=== PATIENT | female | born 1970 | race Caucasian/White ===

== ENCOUNTER 2017-03-31 11:38 | Observation (INO) | payer OTHER ==
[~2017-03-31] VITALS: Ht 170.2 cm; Wt 68.0 kg
--- NOTE | 2017-03-31 11:42 | NUR ---
PT HAD EVAL TODAY AT WALK IN TO R/O APPY DUE TO RLQ PAIN SINCE LAST NIGHT AND HAD BLOODWORK. AFTER THAT SHE FELT WEAK, DIZZY, HANDS TINGLING. REPORTS LOW GRADE TEMP 99.9 ARIVES AFEBRILE BUT DIAPHORETIC IN TRIAGE. NO VOMITING. TO EKG ALCOVE NOTE WRITTEN BY LAURE LIU.
--- NOTE | 2017-03-31 12:02 | NUR ---
PT TO ROOM 12 VIA W/C, CHANGED INTO GOWN. AWAITING PROVIDER EVAL. Informed waiting has been performed.
[2017-03-31 12:12] LABS: ABSOLUTE BASOPHIL COUNT 0 /CUMM (0.0-0.2); ABSOLUTE EOSINOPHIL COUNT 0 /CUMM (0.0-0.7); ABSOLUTE GRANULOCYTE CT 14.1 /CUMM (1.4-6.5); ABSOLUTE LYMPH COUNT 1.4 /CUMM (1.2-3.4); BASOPHIL % 0 % (0.0-2.0); EOSINOPHIL % 0.3 % (0-5); HEMATOCRIT 40.5 % (37-47); MEAN CORPUSCULAR HGB CONC 33.4 G/DL (33.0-37.0); MEAN CORPUSCULAR VOLUME 86.6 FL (81.0-99.0); MEAN PLATELET VOLUME 9.7 FL (7.4-10.4); PLATELET COUNT 191 /CUMM (130-400); RBC DISTRIBUTION WIDTH 13.1 % (11.5-14.5); RED BLOOD CELL CT 4.67 /CUMM (4.20-5.40); WHITE BLOOD CELL COUNT 16.6 /CUMM (4.8-10.8)
--- NOTE | 2017-03-31 12:14 | NUR ---
DR DIAZ IN FOR EVAL.
--- NOTE | 2017-03-31 12:29 | ED GI/GU/ABDOMINAL COMPLAINT ---
History of Present Illness General Chief Complaint: Nausea, Vomiting, Diarrhea Stated Complaint: NEAR SYNCOPE NAUSEA GAVE BLOOD TODAY Source: patient Exam Limitations: no limitations Vital Signs & Intake/Output Vital Signs & Intake/Output Vital Signs Date Time Temp Pulse Resp B/P B/P Pulse O2 O2 Flow FiO2 Mean Ox Delivery Rate 04/01 626 98.1 63 20 136/80 97 Room Air 03/31 2310 Room Air 03/31 2157 98.0 81 18 120/70 98 03/31 1842 97.5 76 18 120/70 97 Room Air ED Intake and Output 04/01 0000 03/31 1200 Intake Total 980 Output Total Balance 980 Intake, IV 500 Intake, Oral 480 Patient 150 lb 150 lb Weight Weight Estimated Measurement Method Allergies Coded Allergies: No Known Allergies (03/31/17) Reconcile Medications Acetaminophen (Tylenol Extra Strength) 500 MG TABLET 2 TAB PO Q6-8 PAIN CONTROL Triage Note: PT HAD EVAL TODAY AT WALK IN TO R/O APPY DUE TO RLQ PAIN SINCE LAST NIGHT AND HAD BLOODWORK. AFTER THAT SHE FELT WEAK, DIZZY, HANDS TINGLING. REPORTS LOW GRADE TEMP 99.9 ARIVES AFEBRILE BUT DIAPHORETIC IN TRIAGE. NO VOMITING. TO EKG LANCING Triage Nurses Notes Reviewed? yes ? N Is pt currently ? No HPI: Patient presents for evaluation of a periumbilical abdominal pain that began gradually last night. Patient states the pain then moved down into the right lower quadrant. She noticed that it was worse with movement. It is a sharp pain that fluctuates in intensity but has gotten worse. She went to a walk-in center and had blood drawn but was getting into her car to have an ultrasound when she had an onset of sweating nausea and tingling of the hands. She states she had a low-grade fever when at the walk-in center. She denies diarrhea but has had a loose bowel movement. She denies dysuria recent travel known ill contacts chest pain dyspnea or rashes. Currently she complains only of the periumbilical and right lower quadrant abdominal pain. The remaining symptoms have resolved. Past History Travel History Traveled to [place] past 21 day No Medical History Any Pertinent Medical History? see below for history Cardiovascular: QUESTIONABLE BORDERLINE HYPERTENSION Surgical History Surgical History: , tubal ligation Psychosocial History What is your primary language Turkish Tobacco Use: Refused to answer Family History Hx Contributory? No Review of Systems Review of Systems Constitutional: Reports: no symptoms. EENTM: Reports: no symptoms. Respiratory: Reports: no symptoms. Cardiovascular: Reports: no symptoms. GI: Reports: see HPI. Genitourinary: Reports: no symptoms. Musculoskeletal: Reports: no symptoms. Skin: Reports: no symptoms. Neurological/Psychological: Reports: no symptoms. Hematologic/Endocrine: Reports: no symptoms. Immunologic/Allergic: Reports: no symptoms. All Other Systems: Reviewed and Negative Physical Exam Physical Exam Gastrointestinal: SEE BELOW Comments: Gen.: Well-nourished, well-developed, no acute respiratory distress. Head: Normocephalic, atraumatic. Eyes: Normal inspection bilaterally Ears: Normal inspection bilaterally Nose: Normal inspection Throat/mouth : Moist mucosa Neck: Supple, full range of motion, no goiter Heart: Regular rate and rhythm, no murmurs rubs or gallops Lungs: Clear to auscultation bilaterally with normal air entry Chest: Nontender Back: Normal range of motion Abdomen: Soft, tenderness of the right lower quadrant and McBurney's point, Rovsing sign present, nondistended, normal bowel sounds, tenderness to percussion over the right lower quadrant Extremities: Normal range of motion grossly, equal radial pulses, no cyanosis clubbing or edema Neurologic: Cranial nerves grossly intact, speech is clear Skin: warm and dry Psychiatric: Calm, cooperative, no apparent delusions or hallucinations Core Measures ACS in differential dx? No Severe Sepsis Present: No Septic Shock Present: No Progress Differential Diagnosis: APPENDICITIS, OVARIAN CYST/TORSION, RENAL COLIC Plan of Care: Orders Procedure Date/time Status Regular Diet 04/01 B Active Wound Care/Dressing 04/01 0024 Active Discharge Patient 04/01 UNK Active Regular Diet 03/31 D Complete RT: Evaluation 03/31 2309 Active TRC EVALUATION (GEN) 03/31 1853 Active Pathway - chart 03/[address] in observation 03/31 1853 Active Patient Data 03/31 1853 Active VTE Mechanical Prophylaxis 03/31 1853 Active Vital Signs 03/31 1853 Complete Intake & Output 03/31 1853 Active Activity/Ambulation 03/31 1853 Active Vital Signs 03/31 184 Active Teach/Educate 03/31 1842 Active Pain Treatment and Response 03/31 1842 Active Nutritional Intake, Monitor 03/31 1842 Active Isolation 03/31 1842 Active Intake & Output 03/31 1842 Active Patient Care Conference 03/31 1842 Active Activity/Ambulation 03/31 1842 Complete PHARMACY COMMUNICATION FORM 03/31 UNK Active Initial ED EKG: NSR, no ST T wave changes Comments: Patient declined pain medication. 03/31/2017 1:26:52 PM I just received a call from the radiologist, patient has acute appendicitis. Surgery paged. Departure Departure Disposition: STILL A PATIENT Condition: Stable Clinical Impression Primary Impression: Acute appendicitis Qualifiers: Acute appendicitis type: with localized peritonitis Qualified Code: K35.3 - Acute appendicitis with localized peritonitis Referrals: BAKARI MCKEE,EHSAN William (PCP/Family) Departure Forms: Customer Survey General Discharge Information Prescriptions: Current Visit Scripts Acetaminophen (Tylenol Extra Strength) 2 TAB PO Q6-8 #30 TAB Admission Note Spoke With: MICHELLE ANDRADE DO Documentation of Exam: Documentation of any treatments & extenuating circumstances including Concerns Regarding Discharge (functional status, medication knowledge or non-compliance, living conditions, etc.) that warrant an admission rather than observation: OR/GI Note ED Treatment Decision: JANNET VILLALOBOS requires urgent operative management or an emergent procedure that cannot be performed in the Emergency Room setting. Transport To: [facility] Critical Care Note Critical Care Note Critical Care Time: 30-74 min
--- NOTE | 2017-03-31 12:38 | NUR ---
PT TO U/S VIA STRETCHER.
--- NOTE | 2017-03-31 13:09 | NUR ---
PT RETURNED FROM US
--- NOTE | 2017-03-31 13:09 | NUR ---
PT TO CAT SCAN
--- NOTE | 2017-03-31 13:20 | NUR ---
BACK FROM CAT SCAN.
--- NOTE | 2017-03-31 13:25 | ULTRASOUND REPORT ---
EXAMINATION: US TRANSVAGINAL CLINICAL INFORMATION: Right lower abdominal pain. Evaluate for ovarian cyst or torsion. COMPARISON: CT images of the abdomen and pelvis from 03/31/2017 TECHNIQUE: Sonographic imaging of the pelvis was performed using transabdominal and transvaginal transducers. In addition to grayscale imaging, duplex Doppler imaging of both ovaries was performed. FINDINGS: The cervical canal measures approximately 2.8 cm in length and there are nabothian cysts of the cervix. The uterus measures approximately 6 cm long, 3.6 cm AP and 5.8 cm transverse. The myometrial echotexture is normal. The endometrium is normal and measures 0.4 cm AP. The right ovary is 3.6 x 1.2 x 2.1 cm. The left ovary is 2.7 x 2 x 2 cm and its dominant follicle is 1.7 cm. There are no adnexal masses. Color Doppler images with spectral waveforms show presence of normal arterial and venous flow within both ovaries. No free fluid in the pelvic cul-de-sac. IMPRESSION: The uterus and ovaries are normal. No evidence of ovarian mass or torsion.
--- NOTE | 2017-03-31 13:36 | CT SCAN REPORT ---
EXAMINATION: CT ABDOMEN AND PELVIS WITH CONTRAST CLINICAL INFORMATION: Right lower quadrant pain. COMPARISON: None TECHNIQUE: Multidetector volumetric imaging was performed of the abdomen and pelvis before and after the IV administration of 95 mL of Optiray 320 intravenous contrast. Sagittal and coronal reformatted images were obtained on the technologist's workstation. DLP: 339 mGy-cm FINDINGS: LUNG BASES: Unremarkable. LIVER, GALLBLADDER, AND BILIARY TREE: Liver has normal size and contour. 0.4 cm hypodense focus near the hepatic dome is likely a cyst but is too small to characterize. No suspicious hepatic lesion or intrahepatic bile duct dilatation. Gallbladder is unremarkable. PANCREAS: Unremarkable. SPLEEN: Unremarkable. ADRENAL GLANDS: Unremarkable. KIDNEYS, URETERS AND BLADDER: Kidneys are normal in size and enhance symmetrically. There is a 3 mm calculus in the lower pole of the left kidney (image 256, series 3). Otherwise, kidneys, ureters and bladder are unremarkable. GASTROINTESTINAL TRACT: Stomach is unremarkable. Loops of bowel are normal in caliber. The appendix is dilated up to 1 cm, its wall thickened and hyperenhancing, and two appendicoliths are noted. There is periappendiceal fat stranding and free fluid without rim-enhancing abscess. There are diverticula of the sigmoid colon without diverticulitis. ABDOMINAL WALL: There is diastases of rectus abdominis muscles ( by 5.5 cm at the level of the umbilicus). Small fat-containing umbilical hernia is noted with hernia sac measuring 2.3 cm transverse and 1.8 cm craniocaudal. LYMPH NODES: No pathologic sized lymph nodes within the abdomen or pelvis. VASCULAR: Abdominal aorta is normal in caliber. The left renal vein has a retroaortic course. PELVIC VISCERA: The uterus and ovaries are normal. Small amount of free fluid is seen within the pelvis. OSSEOUS STRUCTURES: Unremarkable. IMPRESSION: 1. Acute appendicitis. 2. Diastases of rectus abdominis muscles and small fat-containing umbilical hernia. 3. Small, 3 mm nonobstructing calculus within the lower pole of the left kidney. The test result of acute appendicitis was discussed with Dr. Villela of the emergency room at 1:26 PM on 03/31/2017 and it was ascertained that the content and the importance of the findings was understood at the time of the direct communication.
--- NOTE | 2017-03-31 14:18 | NUR ---
DR DIAZ IN TO REVIEW POC. AWAITING SURGERY. Informed waiting has been performed.
--- NOTE | 2017-03-31 14:30 | History & Physical Pre-Op ---
GREGORY WELLINGTON 03/31/17 1428: General Information and HPI Exam Limitations: dementia History of Present Illness: 46yoF no pmhx c/o abd pain and bloating which started approx 24hr ago. Pain worsened overnight, and went to urgent care center this am. Urgent care sent her to have imaging/labs, but she didn't have them completed- instead felt worse and came directly to ED. 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 Surgical History Pertinent Surgical History: , tubal ligation Past Family/Social History Psychosocial History Smoking Status: Never Smoked ETOH Use: denies use Illicit Drug Use: denies illicit drug use Review of Systems Review of Systems: SEE HPI Exam & Diagnostic Data Last 24 Hrs of Vital Signs/I&O Vital Signs Date Time Temp Pulse Resp B/P B/P Pulse O2 O2 Flow FiO2 Mean Ox Delivery Rate 03/31 1417 99.3 90 20 140/70 97 Room Air 03/31 1146 97.8 92 16 125/79 100 Room Air Intake & Output 03/31 1600 03/31 0800 03/31 0000 Intake Total Output Total Balance Patient 150 lb Weight Weight Estimated Measurement Method Physical Exam: GEN:NAD CARD: s1s2 RRR PULM: CTAB ABD: softly distended, ttp RLQ EXT: calves soft nt bl Last 24 Hrs of Labs/Tevin: Laboratory Tests 03/31/17 1310: Urine Color YEL, Urine Clarity HAZY H, Urine pH 7.0, Ur Specific [place] 1.020, Urine Protein 30 H, Urine Ketones NEG, Urine Nitrite NEG, Urine Bilirubin NEG, Urine Urobilinogen 0.2, Ur Leukocyte Esterase NEG, Ur Microscopic SEDIMENT EXAMINED, Urine RBC 3-5, Urine WBC 3-5 H, Ur Epithelial Cells MOD H, Urine Mucus MANY H, Urine Hemoglobin TRACE-INTACT, Urine Glucose NEG 03/31/17 1154: Anion Gap 10, Estimated GFR > 60, BUN/Creatinine Ratio 13.3, Glucose 114 H, Lactic Acid 1.6, Calcium 9.6, Total Bilirubin 0.8, AST 22, ALT 47, Alkaline Phosphatase 87, Total Protein 7.0, Albumin 4.4, Globulin 2.6, Albumin/Globulin Ratio 1.7, CBC w Diff MAN DIFF ORDERED, RBC 4.67, MCV 86.6, MCH 29.0, RDW 13.1, MPV 9.7, Gran % 85.0 H, Lymphocytes % 8.5 L, Monocytes % 6.2, Eosinophils % 0.3, Basophils % 0 L, Absolute Granulocytes 14.1 H, Absolute Lymphocytes 1.4, Absolute Monocytes 1.0 H, Absolute Eosinophils 0, Absolute Basophils 0, Normocytic RBCs VERIFIED, Normochromic RBCs VERIFIED, PUBS MCHC 33.4 Diagnostic Data Other Results ct ap: IMPRESSION: 1. Acute appendicitis. 2. Diastases of rectus abdominis muscles and small fat-containing umbilical hernia. 3. Small, 3 mm nonobstructing calculus within the lower pole of the left kidney. Assessment/Plan Assessment/Plan: A: 46yoF no PMHX with acute appendicitis, otherwise stable. P: lap appy. NPO, IVF. unasyn given in ed. Admission vs. observation TBD postop based on intraop findings. full code. dw Dr. Boyce As Ranked By This Provider Problem List: 1. Appendicitis RAYMOND MICHELLE JAIMES 03/31/17 1700: Attending MD Review Statement Attending Statement Attending MD Statement: examined this patient, discuss w/resident/PA/[employer], agreed w/resident/PA/[employer], discussed with family, reviewed images Attending Assessment/Plan: Patient seen and examined, agree with above. Abdominal pain since yesterday, now in RLQ. + nausea/?fever. CT scan acute appendicitis. AVSS. Abd- soft, +RLQ tenderness. Labs WBC 16. Will admit, NPO/IVF/IV Abx, and plan for a Lap Appy today. D/W with patient and ED staff.
--- NOTE | 2017-03-31 14:31 | Admission Core Measures ---
Admission Lab Results I reviewed the following labs: Laboratory Tests 03/31 03/31 1310 1154 Chemistry Sodium (137 - 145 mmol/L) 138 Potassium (3.5 - 5.1 mmol/L) 4.0 Chloride (98 - 107 mmol/L) 100 Carbon Dioxide (22 - 30 mmol/L) 28 Anion Gap (5 - 16) 10 BUN (7 - 17 mg/dL) 12 Creatinine (0.5 - 1.0 mg/dL) 0.9 Estimated GFR (>60 ml/min) > 60 BUN/Creatinine Ratio (7 - 25 %) 13.3 Glucose (65 - 99 mg/dL) 114 H Lactic Acid (0.7 - 2.1 mmol/L) 1.6 Calcium (8.4 - 10.2 mg/dL) 9.6 Total Bilirubin (0.2 - 1.3 mg/dL) 0.8 AST (14 - 36 U/L) 22 ALT (9 - 52 U/L) 47 Alkaline Phosphatase (<127 U/L) 87 Total Protein (6.3 - 8.2 g/dL) 7.0 Albumin (3.5 - 5.0 g/dL) 4.4 Globulin (1.9 - 4.2 gm/dL) 2.6 Albumin/Globulin Ratio (1.1 - 2.2 %) 1.7 Hematology CBC w Diff MAN DIFF ORDERED WBC (4.8 - 10.8 /CUMM) 16.6 H RBC (4.20 - 5.40 /CUMM) 4.67 Hgb (12.0 - 16.0 G/DL) 13.5 Hct (37 - 47 %) 40.5 MCV (81.0 - 99.0 FL) 86.6 MCH (27.0 - 31.0 PG) 29.0 RDW (11.5 - 14.5 %) 13.1 Plt Count (130 - 400 /CUMM) 191 MPV (7.4 - 10.4 FL) 9.7 Gran % (42.2 - 75.2 %) 85.0 H Lymphocytes % (20.5 - 51.1 %) 8.5 L Monocytes % (1.7 - 9.3 %) 6.2 Eosinophils % (0 - 5 %) 0.3 Basophils % (0.0 - 2.0 %) 0 L Absolute Granulocytes (1.4 - 6.5 /CUMM) 14.1 H Absolute Lymphocytes (1.2 - 3.4 /CUMM) 1.4 Absolute Monocytes (0.10 - 0.60 /CUMM) 1.0 H Absolute Eosinophils (0.0 - 0.7 /CUMM) 0 Absolute Basophils (0.0 - 0.2 /CUMM) 0 Normocytic RBCs VERIFIED Normochromic RBCs VERIFIED PUBS MCHC (33.0 - 37.0 G/DL) 33.4 Urines Urine Color (YEL,AMB,STR) YEL Urine Clarity (CLEAR) HAZY H Urine pH (5.0 - 8.0) 7.0 Ur Specific [place] (1.001 - 1.035) 1.020 Urine Protein (NEG,<30 MG/DL) 30 H Urine Ketones (NEG) NEG Urine Nitrite (NEG) NEG Urine Bilirubin (NEG) NEG Urine Urobilinogen (0.1 - 1.0 EU/dl) 0.2 Ur Leukocyte Esterase (NEG) NEG Ur Microscopic SEDIMENT EXAMINED Urine RBC (0 - 5 /HPF) 3-5 Urine WBC (0 - 2 /HPF) 3-5 H Ur Epithelial Cells (NONE,FEW) MOD H Urine Mucus (FEW,NONE) MANY H Urine Hemoglobin (NEG) TRACE-INTACT Urine Glucose (N MG/DL) NEG Admission Meds I reviewed the following Meds: Current Medications Sig/Eli Start time Last Medication Dose Stop Time Status Admin Ampicillin Sodium/ 3,000 MG ONCE ONE 03/31 1400 UNVr 03/31 Sulbactam Sodium 03/31 1429 1415 (Unasyn) Sodium Chloride 100 ML (Normal Saline 0.9%) Acute Coronary Syndrome Inclusion Criteria ACS Diagnosis No Inpatient Core Measures LDL Reminder: If No, please order W/I first 24hr of stay Congestive Heart Failure Inclusion Criteria CHF Diagnosis No Cerebrovascular accident Inclusion Criteria CVA/TIA Diagnosis No Inpatient Core Measures Bedside Swallow Eval Reminder: If BSE failed, place ST order Antithrombotic Reminder: Order Antithrombotic Medication by end of day 2 Antithrombotic Reminder: Document Reason Antithrombotic Not ordered by end of day 2 AFIB/Flutter Reminder: If Present, add to problem list AFIB/Flutter Reminder: Order Anticoag Medication for pts with AFIB/Flutter Atherosclerosis Reminder: If Present, add to problem list LDL Reminder: If No, please order W/I first 24hr of stay PT Order Reminder: If No, please order Venous thromboembolism Inpatient Core Measures VTE Risk Factors: Acute medical illness No Mech VTE prophylaxis d/t No contraindications No VTE Pharm Prophylaxis d/t No contraindications Inclusion Criteria - Per Current guidelines, there needs to be overlap - treatment for the first 5 days of Warfarin therapy. - Parenteral Anticoagulation (IV or SC) needs to be - given along with Warfarin therapy. VTE Diagnosis No VTE Type NONE VTE Confirmed by (Test) NONE Problem List As ranked by this Provider includes Assessment & Plan 1. Appendicitis HOME MEDS Home Med List No Known Home Medications
--- NOTE | 2017-03-31 14:45 | NUR ---
PT TO OR VIA STRETCHER. ALL PAPERWORK SENT. TOOK BELONGINGS. CLINICAL STATUS UNCHANGED.
--- NOTE | 2017-03-31 16:59 | Operative Report ---
Operative/Inv Procedure Report Surgery Date: 03/31/17 Name of Procedure: Laparoscopic Appendectomy Pre-Operative Diagnosis: Acute Appendicitis Post-Operative Diagnosis: Same Estimated Blood Loss: less than 50ml Surgeon/Sterile Tech: MICHELLE SALVADOR Anesthesia: general endotracheal tube IV Fluids: 1500 cc Drains: None Specimens: Appendix Complications: None Condition: Stable Operative Indication: This is a 46-year-old female that presented to the emergency room with abdominal pain. After appropriate workup was completed the patient was diagnosed with acute appendicitis. A laparoscopic possible open appendectomy was discussed in detail. All risks including but not limited to bleeding, infection, and injury to surrounding bowel were discussed in detail. The patient understood everything and decided to proceed. Operative/Procedure Note Note: The patient was brought to the operating room and placed on the table in supine position. Venodyne stockings were placed and adequate general endotracheal anesthesia was obtained. The patient was prepped and draped in standard surgical fashion. Began the procedure by making a 2 cm transverse incision in the infraumbilical crease. Incision was carried down to the fascia. Once the fascia was clearly visualized it was picked up between 2 Brii clamps and divided in the midline. Once we entered the peritoneum 2 stay Vicryl sutures were placed on each side and a 12 mm blunt port was inserted. The abdominal cavity was insufflated to 15 mmHg. And a 10 mm 30 laparoscope was introduced. Upon initial examination no obvious gross pathology was seen, some hyperemia and inflammatory reaction was noted in the right lower quadrant. Adhesions in the midline from prior c-sections were noted. Accessory trocars were placed, both 5 mm, one in the left lower quadrant and one suprapubic. Midline adhesions were taken down using harmonic scalpel. Ascending colon was identified and traced proximally, terminal ileum was identified, and we did note the appendix coursing in a retrocecal fashion. A lot of inflammatory reaction was noted. Distal appendix was markedly inflamed and thickened and adhered to the cecum and to the omentum. Using blunt dissection and harmonic scalpel the appendix was carefully dissected away from surrounding structures. Of note, the dissection took some time due to the very dense adhesions. Once the appendix was away from the omentum and the cecum the mesoappendix was divided using Harmonic scalpel maintaining hemostasis until the appendiceal base was clearly visualized and freely up in the air. The appendix was long and tortuous wrapping around itself. At that point we switched to a 5 mm laparoscope and a 45 mm sorenson Endo RAMAKRISHNA load was inserted and the base was transected. The appendix was placed in an Endobag and removed through the umbilical trocar site. The abdominal cavity was reinsufflated and we switched back to a 10 mm laparoscope. Staple line was examined and some bleeding was noted, that was controlled using endoclips. No other abnormalities were noted. The pelvis and the right lower quadrant were irrigated until clear. All ports were removed under direct visualization, no obvious bleeding was noted. The umbilical trocar site was closed using 0 Vicryl suture. The skin was closed using 4-0 Monocryl. Steri-Strips and dressings were placed. The patient was successfully extubated and transferred to the recovery room in stable condition. The patient tolerated procedure well with no complications. Findings: Dilated/supopurative distal appendix, adhered to the cecum, non-perforated CC: BAKARI MCKEE,EHSAN William
[2017-03-31 18:42] VITALS: BP 120/70
--- NOTE | 2017-03-31 19:08 | NUR ---
PT ARRIVED TO FLOOR VIA STRETCHER FROM PACU AT 1830. PT A/V/OX3. ON RA. LCTA. +BS. 3 SMALL DRESSINGS TO ABD, CDI. PT AMBULATORY, STEADY GAIT. ON CLEAR LIQ DIET, PROVIDED ICE CHIPS & WATER. DENIES ANY PAIN. VITAL SIGNS 120/70, P 76, RR 18, T 97.5, O2 97% ON RA. ORIENTED TO ROOM, CALL DIAZ, AND SURROUNDINGS.
--- NOTE | 2017-03-31 19:35 | PN- General Surgery ---
Subjective Subjective: POSTOP CHECK some abdominal soreness, no n/v, tolerated clears and toast, no cp/sob, no flatus/bm Objective Vital Signs and I&Os Vital Signs Date Time Temp Pulse Resp B/P B/P Pulse O2 O2 Flow FiO2 Mean Ox Delivery Rate 03/31 1842 97.5 76 18 120/70 97 Room Air 03/31 1417 99.3 90 20 140/70 97 Room Air 03/31 1146 97.8 92 16 125/79 100 Room Air Intake & Output 03/31 1600 03/31 0800 03/31 0000 03/30 1600 03/30 0800 03/30 0000 Intake Total Output Total Balance Patient 150 lb Weight Weight Estimated Measurement Method Physical Exam: GEN: NAD CARD: S1S2 RRR PULM: CTAB ABD: dressings CDI, ttp at incisions, softly distended EXT: calves soft nt bl Assessment/Plan Assessment/Plan A: POD0 sp lap appy, stable. P: advance diet as tolerated, HL once tolerating I&Os prn pain meds OOB, ambulate, DVT ppx ABX x2 doses postop ppx DC planning Core Measures/Miscellaneous Venous Thromboembolism VTE Risk Factors: Surgery VTE Contraindications: No Contraindications VTE Diagnosis: No VTE Type: NONE VTE Confirmed by (Test): NONE Beta Rohan Is Beta Rohan a Home Med? No Antibiotics Is Patient on Antibiotics? Yes If Yes: prophylaxis
[2017-03-31] MEDS ORDERED: PERCOCET 5-3251 EACH PO (19:59)
--- NOTE | 2017-03-31 20:03 | Patient Discharge Instructions ---
Discharge Instructions General Discharge Information You were seen/treated for: acute appendicitis You had these procedures: laparoscopic appendectomy Watch for these problems: fever>101, worsening pain, drainage/redness at incisions, inability to eat/drink , inability to pass gas/bm Other wound care: You may shower 2 days from surgery. Do not soak wounds- no tub baths/swimming. Watch for signs of infection Diet Continue normal diet: Yes Recommended Diet: Regular Activity Activity Self Limited: Yes (activity as tolerated) Acute Coronary Syndrome Inclusion Criteria At DC or during hospital stay patient has or had the following: ACS DIAGNOSIS No Discharge Core Measures Meds if any: Prescribed or Continued at Discharge Meds if any: NOT Prescribed or Continued at Discharge Congestive Heart Failure Inclusion Criteria At DC or during hospital stay patient has or had the following: CHF DIAGNOSIS No Discharge Core Measures Meds if any: Prescribed or Continued at Discharge Meds if any: NOT Prescribed or Continued at Discharge Cerebrovascular accident Inclusion Criteria At DC or during hospital stay patient has or had the following: CVA/TIA Diagnosis No Discharge Core Measures Meds if any: Prescribed or Continued at Discharge Meds if any: NOT Prescribed or Continued at Discharge Venous thromboembolism Inclusion Criteria VTE Diagnosis No VTE Type NONE VTE Confirmed by (Test) NONE Discharge Core Measures - Per Current guidelines, there needs to be overlap - treatment for the first 5 days of Warfarin therapy. - If discharged on Warfarin prior to 5 days of - overlap therapy, the patient will need to be - assessed for post discharge needs including - *Post discharge parental anticoagulation - *Warfarin and/or parental anticoagulation education - *Follow up date to check INR post discharge At least 5 days overlap therapy as Inpatient No Meds if any: Prescribed or Continued at Discharge Note: Overlap Therapy is Warfarin and Anticoagulant Meds if any: NOT Prescribed or Continued at Discharge
--- NOTE | 2017-03-31 20:05 | Surg Short-stay <48hrs Dis Sum ---
Visit Information Visit Dates Admission Date: 03/31/17 Discharge Date: 04/01/17 Surgical Short Stay DC Summary Admission Diagnosis: acute appendicitis Final Diagnosis: same, s/p laparoscopic appendectomy Procedure(s): laparoscopic appendectomy 03/31/17 Summary/Significant Findings: 46yoF no pmhx found with acute appendicitis in ED. Brought to OR and underwent lap appy with Dr. Boyce without complications. Postop, tolerated regular diet , pain controlled with oral pain meds, oob without difficulty. Condition at Discharge: stable Discharge Disposition: home or self care Discharge instructions provided to patient/family: Yes Post discharge follow-up plan: call to be seen 2 weeks from surgery
[2017-03-31 21:57] VITALS: BP 120/70
[2017-04-01 06:26] VITALS: BP 136/80
--- NOTE | 2017-04-01 07:47 | PN- General Surgery ---
Subjective Subjective: POD#1 S/P LAP APPY NO COMPLAINTS TOLERATING TOAST Objective Vital Signs and I&Os Vital Signs Date Time Temp Pulse Resp B/P B/P Pulse O2 O2 Flow FiO2 Mean Ox Delivery Rate 04/01 06 98.1 63 20 136/80 97 Room Air /08 2310 Room Air / 2157 98.0 81 18 120/70 98 /08 1842 97.5 76 18 120/70 97 Room Air 03/31 1417 99.3 90 20 140/70 97 Room Air / 1146 97.8 92 16 125/79 100 Room Air Intake & Output 04/01 0800 / 0000 07/08 1600 /08 0800 / 0000 03/30 1600 Intake Total 1360 980 Output Total Balance 1360 980 Intake, IV 1000 500 Intake, Oral 360 480 Patient 150 lb 150 lb Weight Weight Estimated Measurement Method Physical Exam: ABD: SOFT +BS NO GUARDING TO PALP DRSGS DRY Assessment/Plan Assessment/Plan SURGICAL STABLE PLAN REGULAR DIET HOME THIS AM F/ DR ANDRADE Core Measures/Miscellaneous Venous Thromboembolism VTE Risk Factors: Surgery VTE Contraindications: No Contraindications VTE Diagnosis: No VTE Type: NONE VTE Confirmed by (Test): NONE Beta Rohan Is Beta Rohan a Home Med? No Antibiotics Is Patient on Antibiotics? Yes If Yes: prophylaxis
[2017-04-01] MEDS ORDERED: TYLENOL EXTRA500 M2 PO (07:49)
== END 2017-04-01 09:55 ==
LOC: ERH 11:38 → ER-OR 11:58 → PACUH 17:04 → ENRESERV 17:37 → ENTRNSPT 18:11 → 2NA 18:32 → EDTRNSPTSTS 18:36 → CMPTRNSPT 18:58 → 2NA 04-01 09:55
PROVIDERS: Emergency Medicine; ADMIT Surgery
DX: K35.80 Unspecified acute appendicitis (principal)
CPT/HCPCS: 1255; 6030; 74177; 81001; 93005; 93010; 96374; 96375; C9399; G0378; J0131; J0690; J1170; J1644; J1885; J2175; J2250; J2405; J3010; J7042